=== PATIENT | female | born 1970 | race Hispanic/Latino ===

== ENCOUNTER 2024-03-12 14:44 | Outpatient (CLI) | payer MEDICARE, SELFPAY ==
--- NOTE | ~2024-03-12 | US_ITS ---
EXAMINATION: US thyroid DATE: 03/12/2024 15:36 INDICATION: Dysphasia TECHNIQUE: Multiple ultrasound images of the thyroid were obtained. COMPARISON: None. FINDINGS: The right thyroid lobe measures 3.7 x 1.4 x 1.2 cm. The left thyroid lobe measures 3.6 x 1.1 x 1.6 c m. The isthmus measures 2.2 cm. There is normal echotexture and echogenicity throughout the thyroid g land. No discrete nodules identified. Normal vascular flow is present. IMPRESSION: Normal thyroid ultrasound findings. Reviewed, dictated and finalized at location K.
== END 2024-03-12 14:45 | disposition home or self-care (01) ==
PROVIDERS: PCP Registered Nurse; Visit Provider Registered Nurse
DX: R13.13 Dysphagia, pharyngeal phase (principal)
CPT/HCPCS: 76536

== ENCOUNTER 2024-06-25 14:52 | Outpatient (CLI) | payer OTHER, SELFPAY ==
--- NOTE | ~2024-06-25 | MM_ITS ---
EXAMINATION: MM screening [facility] BI w emily HISTORY: Screening TECHNIQUE: Craniocaudal and mediolateral oblique 3-D tomosynthesis images were obtained and synthetic 2-D images were generated. CAD analysis was submitted and interpreted. COMPARISON: No prior mammogram is available for comparison at this institution. BREAST PARENCHYMAL COMPOSITION: Not dense: There are scattered areas of fibroglandular density. FINDINGS: There is no evidence of suspicious mass, calcification, or architectural distortion to sugg est malignancy in either breast. There has been no suspicious interval change. IMPRESSION: 1. No mammographic evidence of malignancy. 2. Recommend routine screening mammography in one year. BI-RADS Category 1: Negative Reviewed, dictated and finalized at location B.
== END 2024-06-25 14:53 | disposition home or self-care (01) ==
LOC: ANHIMG 14:57
PROVIDERS: PCP Registered Nurse; Visit Provider Registered Nurse
DX: Z12.31 Encounter for screening mammogram for malignant neoplasm of breast (principal)
CPT/HCPCS: 77063; 77067